=== PATIENT | female | born 1985 | race Caucasian/White ===

== ENCOUNTER 2019-09-30 12:37 | Emergency (ER) | payer MEDICAID ==
[~2019-09-30] VITALS: Ht 157.5 cm; Wt 62.6 kg
[~2019-09-30 12:37] MED LIST: ALPR0.5T8 PO; DIPH25CA52 PO; FAMO-1 PO; IBUP-1984 PO; PROM25TA14 PO; PROP40TA7 PO; QUET50TA15 PO
[2019-09-30 12:46] VITALS: BP 126/86
[2019-09-30] MEDS ORDERED: CLIN300C70 PO (13:19)
[2019-09-30] MEDS ORDERED: IBUP-1984 PO (13:19)
== END 2019-09-30 13:40 | disposition home or self-care (01) ==
LOC: ER 12:37
DX: K04.7 Periapical abscess without sinus (principal); K21.9 Gastro-esophageal reflux disease without esophagitis; Z87.442 Personal history of urinary calculi; Z88.1 Allergy status to other antibiotic agents
CPT/HCPCS: 99283

== ENCOUNTER 2019-11-12 03:23 | Emergency (ER) | payer MEDICAID ==
[~2019-11-12] VITALS: Ht 157.5 cm; Wt 63.0 kg
--- NOTE | 2019-11-12 04:18 | NUR ---
RAPID STREP SENT TO LAB
[2019-11-12] MEDS ORDERED: LIDOcaine Viscous 15ml cup MM ONE (04:55)
[2019-11-12] MEDS ORDERED: mag hydrox/Alum hydrox/simeth 30ml oral suspension PO ONE (04:55)
[2019-11-12] MEDS ORDERED: penicillin G benzathine 1.2 million unit/2ml syringe IM ONE (04:55)
[2019-11-12 05:50] VITALS: BP 132/86
== END 2019-11-12 05:27 | disposition home or self-care (01) ==
LOC: ER 03:23
DX: J02.0 Streptococcal pharyngitis (principal); B95.0 Streptococcus, group A, as the cause of diseases classified elsewhere; K21.9 Gastro-esophageal reflux disease without esophagitis; F17.200 Nicotine dependence, unspecified, uncomplicated; F12.90 Cannabis use, unspecified, uncomplicated; F11.90 Opioid use, unspecified, uncomplicated; Z87.442 Personal history of urinary calculi; Z88.1 Allergy status to other antibiotic agents; Z88.8 Allergy status to other drugs, medicaments and biological substances; Z79.899 Other long term (current) drug therapy
CPT/HCPCS: 87880; 96372; 99283; J0561

== ENCOUNTER 2020-03-17 13:26 | Emergency (ER) | payer MEDICAID ==
[~2020-03-17] VITALS: Ht 157.5 cm; Wt 63.6 kg
[~2020-03-17 13:26] MED LIST changes: -ALPR0.5T8 PO; -DIPH25CA52 PO; -FAMO-1 PO; -PROM25TA14 PO; -PROP40TA7 PO; -QUET50TA15 PO
[2020-03-17 13:35] VITALS: BP 120/78
[2020-03-17] MEDS ORDERED: ALBU8HFA PO (14:47)
[2020-03-17] MEDS ORDERED: DEXA6TAB6 PO (14:47)
== END 2020-03-17 15:30 | disposition home or self-care (01) ==
LOC: ER 13:27
DX: J06.9 Acute upper respiratory infection, unspecified (principal); B97.89 Other viral agents as the cause of diseases classified elsewhere; R05 Cough; R06.02 Shortness of breath; J34.89 Other specified disorders of nose and nasal sinuses; Z20.828 Contact with and (suspected) exposure to other viral communicable diseases; K21.9 Gastro-esophageal reflux disease without esophagitis; F17.200 Nicotine dependence, unspecified, uncomplicated; F12.90 Cannabis use, unspecified, uncomplicated; F11.90 Opioid use, unspecified, uncomplicated; Z87.442 Personal history of urinary calculi; Z87.440 Personal history of urinary (tract) infections; Z72.89 Other problems related to lifestyle; Z88.1 Allergy status to other antibiotic agents; Z79.899 Other long term (current) drug therapy
CPT/HCPCS: 71045; 99283

== ENCOUNTER 2020-07-08 18:22 | Emergency (ER) | payer MEDICAID ==
[~2020-07-08 18:22] MED LIST changes: +DEXA6TAB6 PO
--- NOTE | 2020-07-08 18:37 | NUR ---
FOUND PT IN PARKING LOT. REPORTS DOES NOT WANT TO BE SEEN. MANAGER FIBER AND MD NOTIFIED.
== END 2020-07-08 19:18 | disposition left against medical advice (07) ==
LOC: ER 18:23
DX: J02.9 Acute pharyngitis, unspecified (principal); Z53.21 Procedure and treatment not carried out due to patient leaving prior to being seen by health care provider

== ENCOUNTER 2020-11-01 17:01 | Emergency (ER) | payer MEDICAID ==
[~2020-11-01] VITALS: Ht 157.5 cm; Wt 63.6 kg
[2020-11-01] MEDS ORDERED: SULF1TAB49 PO (17:51)
[2020-11-01] MEDS ORDERED: DOXY100C2 PO (17:51)
[2020-11-01 17:58] VITALS: BP 132/70
== END 2020-11-01 17:59 | disposition home or self-care (01) ==
LOC: ER 17:02
DX: L02.416 Cutaneous abscess of left lower limb (principal); L03.116 Cellulitis of left lower limb; K21.9 Gastro-esophageal reflux disease without esophagitis; F12.90 Cannabis use, unspecified, uncomplicated; F11.90 Opioid use, unspecified, uncomplicated; Z87.440 Personal history of urinary (tract) infections; Z87.442 Personal history of urinary calculi; Z88.1 Allergy status to other antibiotic agents; Z88.8 Allergy status to other drugs, medicaments and biological substances; Z79.899 Other long term (current) drug therapy
CPT/HCPCS: 99284

== ENCOUNTER 2020-11-20 18:09 | Emergency (ER) | payer MEDICAID ==
[~2020-11-20] VITALS: Ht 157.5 cm; Wt 59.1 kg
[2020-11-20 18:19] VITALS: BP 160/102
--- NOTE | 2020-11-20 18:28 | NUR ---
patient refused gown.
[2020-11-20] MEDS ORDERED: SULF1TAB45 PO (18:56)
[2020-11-20] MEDS ORDERED: DOXY100C76 PO (18:56)
== END 2020-11-20 19:05 | disposition home or self-care (01) ==
LOC: ER 18:10
DX: L03.317 Cellulitis of buttock (principal); L02.31 Cutaneous abscess of buttock; K21.9 Gastro-esophageal reflux disease without esophagitis; F12.90 Cannabis use, unspecified, uncomplicated; F11.90 Opioid use, unspecified, uncomplicated; Z87.442 Personal history of urinary calculi; Z87.440 Personal history of urinary (tract) infections; Z88.1 Allergy status to other antibiotic agents; Z88.8 Allergy status to other drugs, medicaments and biological substances; Z79.2 Long term (current) use of antibiotics; Z79.899 Other long term (current) drug therapy
CPT/HCPCS: 99283

== ENCOUNTER 2023-05-03 19:59 | Emergency (ER) | payer MEDICAID ==
[~2023-05-03] VITALS: Ht 157.5 cm; Wt 62.7 kg
[2023-05-03 20:04] VITALS: BP 142/93; PULSE 99; RESP 16; TEMP 98.1; O2SAT 100
== END 2023-05-03 22:51 ==
LOC: ER 20:00
DX: K21.9 Gastro-esophageal reflux disease without esophagitis; Z87.442 Personal history of urinary calculi; Z88.5 Allergy status to narcotic agent; Z79.899 Other long term (current) drug therapy
CPT/HCPCS: 74018; 99283

== ENCOUNTER 2023-05-05 02:54 | Emergency (ER) | payer MEDICAID ==
[~2023-05-05] VITALS: Ht 157.5 cm; Wt 60.0 kg
[2023-05-05 02:55] VITALS: BP 158/107; PULSE 86; RESP 14; TEMP 97.7; O2SAT 100
[2023-05-05] MEDS ORDERED: ibuprofen tablet 400 MG TABLET PO ONE (03:15)
== END 2023-05-05 04:18 | disposition home or self-care (01) ==
LOC: ER 02:54
DX: S93.492A Sprain of other ligament of left ankle, initial encounter (principal); W19.XXXA Unspecified fall, initial encounter; Y93.89 Activity, other specified; Y92.89 Other specified places as the place of occurrence of the external cause; Y99.8 Other external cause status
CPT/HCPCS: 73610; 99284; L4360

== ENCOUNTER 2023-06-06 18:27 | Emergency (ER) | payer MEDICAID ==
[~2023-06-06] VITALS: Ht 157.5 cm; Wt 61.4 kg
[2023-06-06] MEDS ORDERED: chlordiazePOXIDE 25mg capsule PO ONE (18:40)
[2023-06-06 18:50] VITALS: BP 126/96; PULSE 114; RESP 17; TEMP 99.4; O2SAT 98
--- NOTE | 2023-06-06 20:35 | NUR ---
PT LEFT / ELOPPED WITHOUT BEEN SEEN PT STATED SHE CANT WAIT DOUGIE BERG INFORMED
== END 2023-06-06 20:38 | disposition left against medical advice (07) ==
LOC: ER 18:28
DX: R21 Rash and other nonspecific skin eruption (principal); Z53.21 Procedure and treatment not carried out due to patient leaving prior to being seen by health care provider
CPT/HCPCS: 99281

== ENCOUNTER 2024-02-12 22:12 | Emergency (ER) | payer MEDICAID ==
[~2024-02-12] VITALS: Ht 157.5 cm; Wt 71.1 kg
[2024-02-12 22:20] VITALS: TEMP 98.9
[2024-02-12] MEDS ORDERED: AMOX-117 PO (23:02)
[2024-02-12] MEDS ORDERED: HYDR-3965 PO (23:02)
[2024-02-12 23:05] VITALS: BP 143/103; PULSE 115; O2SAT 100
[2024-02-12 23:06] VITALS: RESP 14
== END 2024-02-12 23:13 | disposition home or self-care (01) ==
LOC: ER 22:13
DX: K04.7 Periapical abscess without sinus (principal); F12.90 Cannabis use, unspecified, uncomplicated; F11.90 Opioid use, unspecified, uncomplicated; K21.9 Gastro-esophageal reflux disease without esophagitis; Z72.89 Other problems related to lifestyle; Z87.442 Personal history of urinary calculi; Z88.8 Allergy status to other drugs, medicaments and biological substances; Z79.899 Other long term (current) drug therapy
CPT/HCPCS: 99283

== ENCOUNTER 2024-02-21 13:55 | Emergency (ER) | payer MEDICAID ==
[~2024-02-21] VITALS: Ht 160 cm; Wt 72.9 kg
[~2024-02-21 13:55] MED LIST changes: +AMOX-117 PO
[2024-02-21 14:20] VITALS: BP 167/107; PULSE 129; RESP 18; TEMP 97.8; O2SAT 97
[2024-02-21] MEDS ORDERED: LIDOcaine 5% patch TP SCH (15:33)
[2024-02-21 15:57] LABS: PREOP URINE HCG NEGATIVE (NEGATIVE)
[2024-02-21] MEDS: cyclobenzaprine 10mg tablet PO ONE (16:08)
[2024-02-21] MEDS: dexamethasone sod phosphate 10mg/ml inj IM STA (16:09)
[2024-02-21] MEDS: ketorolac tromethamine 15mg/ml inj. IM ONE (16:09)
[2024-02-21] MEDS ORDERED: PRED20TA PO (17:02)
[2024-02-21] MEDS ORDERED: CYCL-1 PO (17:02)
[2024-02-21] MEDS ORDERED: LIDO700A32 TOP (17:02)
== END 2024-02-21 17:08 | disposition home or self-care (01) ==
LOC: ER 13:55
DX: M54.32 Sciatica, left side (principal); K21.9 Gastro-esophageal reflux disease without esophagitis; F12.90 Cannabis use, unspecified, uncomplicated; Z88.1 Allergy status to other antibiotic agents; Z79.2 Long term (current) use of antibiotics; Z79.899 Other long term (current) drug therapy; Z79.1 Long term (current) use of non-steroidal anti-inflammatories (NSAID)
CPT/HCPCS: 72100; 81025; 96372; 99284; J1100; J1885

== ENCOUNTER 2024-04-28 16:00 | Emergency (ER) | payer MEDICAID ==
[~2024-04-28] VITALS: Ht 162.6 cm; Wt 73.0 kg
[~2024-04-28 16:00] MED LIST changes: -AMOX-117 PO; +CYCL-1 PO; +LIDO700A32 TOP
[2024-04-28 16:18] VITALS: BP 141/92; PULSE 99; RESP 18; TEMP 98; O2SAT 100
[2024-04-28] MEDS ORDERED: SULF1TAB49 PO (16:36)
[2024-04-28] MEDS ORDERED: IBUP-1986 PO (16:55)
== END 2024-04-28 16:59 | disposition home or self-care (01) ==
LOC: ER 16:00
DX: L02.412 Cutaneous abscess of left axilla (principal); L73.2 Hidradenitis suppurativa; Z88.1 Allergy status to other antibiotic agents; Z79.899 Other long term (current) drug therapy; Z79.1 Long term (current) use of non-steroidal anti-inflammatories (NSAID); Z79.2 Long term (current) use of antibiotics
CPT/HCPCS: 87070; 87077; 87186; 99283; A6258; A6449

== ENCOUNTER 2024-07-20 14:28 | Emergency (ER) | payer MEDICAID ==
[~2024-07-20] VITALS: Ht 157.5 cm; Wt 76.7 kg
[~2024-07-20 14:28] MED LIST changes: +IBUP-1986 PO
[2024-07-20 14:31] VITALS: BP 139/87; PULSE 89; O2SAT 98
[2024-07-20] MEDS ORDERED: AMOX-580 PO (15:27)
[2024-07-20 15:35] VITALS: RESP 18
[2024-07-20] MEDS: ketorolac trometh 30MG/ML vial 30 MG/ML VIAL IM ONE (15:35)
[2024-07-20 15:42] VITALS: TEMP 98
== END 2024-07-20 15:44 | disposition home or self-care (01) ==
LOC: ER 14:29
DX: K08.89 Other specified disorders of teeth and supporting structures (principal); K21.9 Gastro-esophageal reflux disease without esophagitis; F12.90 Cannabis use, unspecified, uncomplicated; F11.90 Opioid use, unspecified, uncomplicated; Z88.1 Allergy status to other antibiotic agents; Z79.1 Long term (current) use of non-steroidal anti-inflammatories (NSAID); Z79.899 Other long term (current) drug therapy; Z87.442 Personal history of urinary calculi
CPT/HCPCS: 96372; 99283; J1885

== ENCOUNTER 2025-01-24 17:11 | Emergency (ER) | payer MEDICAID ==
[~2025-01-24] VITALS: Ht 157.5 cm; Wt 70.6 kg
[2025-01-24 17:13] VITALS: TEMP 98.6
[2025-01-24 18:04] LABS: URINE HCG NEGATIVE (NEG)
[2025-01-24 18:27] LABS: BILIRUBIN,URINE NEGATIVE (Neg); CLARITY,URINE CLOUDY (Clear); COLOR,URINE YELLOW (Yellow); GLUCOSE, URINE NEGATIVE (Neg); KETONES,URINE NEGATIVE (Neg); LEUKOCYTE ESTERASE ,URINE SMALL (Neg); NITRITES, URINE POSITIVE (Neg); OCCULT BLOOD,URINE MODERATE (Neg); PROTEIN,URINE 100 mg/dl (Neg); UROBILINOGEN,URINE 0.2 E.U/dL (0.2-1.0)
[2025-01-24 18:30] LABS: UA COLLECTION TYPE CLN CATCH MIDSTREAM
[2025-01-24 18:47] LABS: WBC,URINE TNTC /HPF (0-4)
[2025-01-24 18:51] LABS: BACTERIA,URINE 2+ /HPF (Neg); MUCUS STRANDS FEW /LPF (Neg); SQUAMOUS EPITHELIAL CELL,UR FEW /LPF (FEW); TRANSITIONAL EPI CELLS,URINE FEW /HPF
[2025-01-24 18:52] LABS: CAL OXALATE CRYSTALS 1+ /HPF (NEGATIVE)
--- NOTE | 2025-01-24 20:55 | Physician Documentation ---
History of Present Illness ~ General Chief Complaint: Multiple Medical Complaints Stated Complaint: MULTIPLE MEDICAL COMPLAINTS Time Seen by MD: 20:54 Primary Medical Doctor: NONE Source: patient History of Present Illness Initial Comments The patient presents with multiple concerns including dysuria, blurry vision, feet swelling. She tells me that over the past several days she has been having pain and burning with urination as well as lower abdominal discomfort. She states it feels like a urinary tract infection. She has had bladder infections in the past. No fevers. No vomiting. She also reports that per the past 5 days or so her vision is felt somewhat blurry. She does not wear contacts or glasses. She states that her eyes have been irritated and having crusty drainage for the past 5 days. She does have some seasonal allergies. She also reports that she has had intermittent swelling in her feet. She states it gets better when she has her feet elevated. No posterior calf or thigh tenderness. No history of blood clots. No history of heart failure. She does report a history of kidney problems. She also tells me that she has an infection on her buttocks, but does not want me to look at it. She does think that she needs antibiotics. Medication Reconciliation Allergies: Coded Allergies: ceftriaxone (Verified Allergy, Mild, rash, 06/06/23) localized reddened macular papular rash Scheduled Cyclobenzaprine* (Cyclobenzaprine*), 1 TAB PO HS Dexamethasone (Decadron), 1 TAB PO DAILY Ibuprofen (Ibuprofen), 1 TAB PO Q8H Ibuprofen* (Motrin*), 400 MG PO Q6H Lidocaine (Lidoderm), 1 PATCH TOP DAILY Sulfamethoxazole/Trimethoprim (Bactrim Ds Tablet), 1 TAB PO Q12H Past Medical History Past Medical History: Headache, Arrhythmia, GERD, Kidney Stones, UTI Past Surgical History: noncontributory Alcohol Use: Rarely Drug Use: marijuana, heroin Lives with: Family Lives In: Home Occupation: student Review of Systems Constitutional: Denies: fever Eyes: Reports: blurred vision, redness Cardiovascular: Reports: edema Gastrointestinal: Denies: abdominal pain, vomiting, diarrhea Physical Exam Physical Exam Vital Signs: Temperature: 98.6, Source: Oral, Heart Rate: 115, Respiratory Rate: 16, BP: 158/109, Pulse Oximetry: 97, Weight: 70.600 Oxygen Flow Rate: 0 Physical Exam General: This is a tired-appearing young female, lying calmly in bed, easily falls asleep HEENT: Atraumatic, oropharynx appears dry. Eyes: The patient has mild diffuse conjunctival injection with tearing bilateral. Pupils are 4 mm and reactive. Extraocular movements intact. No purulence noted around the eyes. Heart: mild tachycardic, appears regular Lungs: Clear breath sounds bilateral, normal work of breathing, normal oxygen saturation on room air Abdomen: Soft, nondistended, nontender all quadrants Extremities: Warm and well-perfused. The patient does have mild edema to both feet and ankles, no posterior calf tenderness or swelling Neuro: Alert and oriented, reported blurred vision, but otherwise cranial nerves 2-12 appear grossly intact, normal strength and sensation in all 4 extremities Psychiatric: easily falls asleep, but is cooperative Progress Results/Orders Results/Orders Completed Orders - DANNY NGUYEN MD Cbc/Diff (01/24/25 21:49) CMP (01/24/25 21:49) TSH (01/24/25 21:49) Sulfamethox/Trimetho. Ds Tab (Mayra Ds (01/24/25 23:05) Erythromycin Ophth Ointment (Ilotycin Op (01/24/25 23:10) Medications Received in ER Medications (Trade) Dose Ordered Sig/Jose Ramon Route PRN Reason Start Time Stop Time Status Last Admin Dose Admin (Mayra DS tab) 1 tab ONCE ONCE PO 01/24/25 23:05 01/24/25 23:06 DC 01/24/25 23:09 1 TAB (Ilotycin ophth ointment) 0.25 inch ONCE ONCE EACHEYE 01/24/25 23:10 01/24/25 23:16 DC 01/24/25 23:44 0.25 INCH Vital Signs 01/24/25 01/24/25 01/24/25 01/24/25 17:13 20:49 21:02 23:56 Temp 98.6 Pulse 125 115 80 Resp 16 16 18 B/P (MAP) 169/114 158/109 (125) 138/60 (86) Pulse Ox 96 97 99 O2 Flow Rate 0 0 01/24/25 23:56 Pulse 80 Resp 16 B/P (MAP) 136/80 Pulse Ox 99 Laboratory Tests Test 01/24/25 17:16 01/24/25 22:03 Urine Specimen Description Cln catch midstream Urine Color Yellow Urine Clarity Cloudy Urine pH 6.0 Urine Specific Ceres >=1.030 Urine Protein 100 H Urine Glucose (UA) Negative Urine Ketones Negative Urine Occult Blood Moderate H Urine Nitrite Positive H Urine Bilirubin Negative Urine Urobilinogen 0.2 Urine Leukocyte Esterase Small H Urine RBC 3-10 Urine WBC Tntc H Urine Squamous Epithelial Cells Few Urine Transitional Epithelial Cells Few Urine Calcium Oxalate Crystals 1+ Urine Bacteria 2+ Urine Mucus Few Urine Culture Indicated Indicated Volume Urine Centrifuged 10 ml Urine HCG, Qualitative Negative Urine Comment White Blood Count 8.2 Red Blood Count 3.45 L Hemoglobin 10.6 L Hematocrit 30.9 L Mean Corpuscular Volume 89.6 Mean Corpuscular Hemoglobin 30.8 Mean Corpuscular Hemoglobin Concent 34.4 Red Cell Distribution Width 13.7 Platelet Count 288 Mean Platelet Volume 7.9 Neutrophils (%) (Auto) 55.2 Lymphocytes (%) (Auto) 30.6 Monocytes (%) (Auto) 10.7 Eosinophils (%) (Auto) 2.3 Basophils (%) (Auto) 1.2 H Neutrophils # (Auto) 4.5 Lymphocytes # (Auto) 2.5 Monocytes # (Auto) 0.9 Eosinophils # (Auto) 0.2 Basophils # (Auto) 0.1 CBC Comment Sodium Level 143 Potassium Level 3.5 Chloride Level 107 Carbon Dioxide Level 31.2 Anion Gap 5 L Blood Urea Nitrogen 12 Creatinine 1.03 H Estimated GFR/1.73 m2 60 BUN/Creatinine Ratio 11.7 Glucose Level 91 Calcium Level 8.3 L Total Bilirubin 0.3 Aspartate Amino Transf (AST/SGOT) 37 Alanine Aminotransferase (ALT/SGPT) 28 Alkaline Phosphatase 54 Total Protein 6.4 Albumin 3.1 L Globulin 3.3 Albumin/Globulin Ratio 0.9 L Thyroid Stimulating Hormone (TSH) 0.56 Chemistry Comments Microbiology Date/Time Source Procedure Growth Status 01/24/25 18:31 Urine Clean Catch Midstream Urine Culture - Preliminary Culture received. Resulted Medical Decision Making Differential Diagnosis Differential includes urinary tract infection, pyelonephritis, sepsis, renal failure, electrolyte derangement, DVT, CHF, , corneal abrasion, allergic conjunctivitis, infectious conjunctivitis Assessment 39-year-old female presenting with multiple concerns. She does have urinary symptoms and her urinalysis consistent with a bladder infection. She has no findings to suggest pyelonephritis or sepsis. She will be treated with antibiotics. She also reports having a infection on her buttocks, which sounds like cellulitis or possibly small abscess. She declined for me to examine this. She will be given antibiotic that also covers this presumed infection. She rep orts blurry vision and on exam has mild diffuse conjunctival injection. Per her history and exam this seems most likely either allergic conjunctivitis or possibly infectious conjunctivitis. No headache or other findings to suggest dangerous intracranial process. She will be treated with erythromycin eye ointment. She also reports swelling in her feet. Her laboratory testing is unremarkable, no significant kidney failure. She has no other findings to suggest congestive heart failure. She has no clinical findings to suggest DVT. After a discussion with the patient regarding all of her testing today, she wanted to return home and just wanted antibiotics. She was encouraged to follow-up in an eye clinic next week for a full eye exam. Return precautions given for worsening symptoms. Departure Time of Disposition: 23:09 Disposition: 01 HOME / SELF CARE / HOMELESS Impression: Primary Impression: Urinary tract infection Additional Impression: Conjunctivitis Condition: Stable Referrals: NO PRIMARY CARE PROVIDER (PCP) Prescriptions Sulfamethoxazole/Trimethoprim (Bactrim Ds Tablet) 800 Mg-160 Mg Tablet 1 TAB PO Q12H for 7 Days, #14 TAB Prov: DANNY NGUYEN MD 01/24/25 Education Educated: Patient Educated regarding: diagnosis, treatment Signature Scribe Signature: cary Attestation: DANNY Ruiz MD January 24, 2025 20:55
[2025-01-24 22:28] LABS: BASOPHILS # (AUTO) 0.1 X10'3 (0-0.2); BASOPHILS % (AUTO) 1.2 % (0-1); EOSINOPHILS # (AUTO) 0.2 X10'3 (0-0.9); EOSINOPHILS % (AUTO) 2.3 % (0-6); HEMATOCRIT 30.9 % (35.0-45.0); HEMOGLOBIN 10.6 g/dl (12.0-16.0); LYMPHOCYTES # (AUTO) 2.5 X10'3 (1.1-4.8); LYMPHOCYTES % (AUTO) 30.6 % (21-51); MEAN CORPUSCULAR HEMOGLOBIN 30.8 PG (27.0-31.0); MEAN CORPUSCULAR HGB CONC 34.4 g/dL (33.0-36.5); MEAN CORPUSCULAR VOLUME 89.6 FL (78-98); MEAN PLATELET VOLUME 7.9 FL (7.4-10.4); MONOCYTES # (AUTO) 0.9 X10'3 (0-0.9); MONOCYTES % (AUTO) 10.7 % (2-12); NEUTROPHILS # (AUTO) 4.5 X10'3 (1.8-7.7); NEUTROPHILS % (AUTO) 55.2 % (42-75); PLATELET COUNT 288 X10'3 (140-440); RED BLOOD COUNT 3.45 X10'6 (4.20-5.60); RED CELL DISTRIBUTION WIDTH 13.7 % (11.5-14.5); WHITE BLOOD COUNT 8.2 X10'3 (4.5-11.0)
[2025-01-24 22:41] LABS: ALANINE AMINOTRANSFERASE 28 U/L (12-78); ALBUMIN 3.1 G/DL (3.4-5.0); ALBUMIN/GLOBULIN RATIO 0.9 (1.1-1.5); ALKALINE PHOSPHATASE 54 IU/L (46-116); ANION GAP 5 (8-16); ASPARTATE AMINO TRANSFERASE 37 U/L (10-37); BILIRUBIN,TOTAL 0.3 MG/DL (0.1-1.0); BLOOD UREA NITROGEN 12 MG/DL (7-18); BUN/CREATININE RATIO 11.7 (10.0-20.0); CALCIUM 8.3 MG/DL (8.5-10.1); CHLORIDE 107 MMOL/L (99-107); CREATININE 1.03 MG/DL (0.40-0.90); GLUCOSE 91 MG/DL (70-104); POTASSIUM 3.5 MMOL/L (3.5-5.1); SODIUM 143 MMOL/L (135-145); TOTAL CARBON DIOXIDE 31.2 MMOL/L (24-32); TOTAL PROTEIN 6.4 G/DL (6.4-8.2); eCRCL 59 ML/MIN; eGFR 60 ML/MIN
[2025-01-24 22:50] LABS: THYROID STIMULATING HORMONE 0.56 ulU/ml (0.34-4.50)
[2025-01-24] MEDS: sulfamethoxazole/trimethoprim DS (800/160mg) tablet PO ONE (23:09)
[2025-01-24] MEDS ORDERED: SULF1TAB49 PO (23:10)
[2025-01-24] MEDS: erythromycin ophthalmic ointment 1gm tube EACHEYE ONE (23:44)
[2025-01-24 23:56] VITALS: BP 136/80; PULSE 80; RESP 16; O2SAT 99
== END 2025-01-25 00:08 | disposition home or self-care (01) ==
LOC: ER 17:12
DX: N39.0 Urinary tract infection, site not specified (principal); H10.9 Unspecified conjunctivitis; K21.9 Gastro-esophageal reflux disease without esophagitis; F12.90 Cannabis use, unspecified, uncomplicated; F11.90 Opioid use, unspecified, uncomplicated; Z88.1 Allergy status to other antibiotic agents; Z79.899 Other long term (current) drug therapy; Z87.442 Personal history of urinary calculi
CPT/HCPCS: 36415; 80053; 81001; 81025; 84443; 85025; 87077; 87088; 87186; 99283